=== PATIENT | female | born 1990 | race Caucasian/White ===

== ENCOUNTER 2019-09-14 16:24 | Emergency (ER) | payer MEDICAID ==
[~2019-09-14] VITALS: Ht 157.5 cm; Wt 81.0 kg
[~2019-09-14 16:24] MED LIST: NO MEDICATIONS REPORTED
[2019-09-14] MEDS ORDERED: ONDANSETRON HCL 4MG/2ML INJ IV STA (16:59)
[2019-09-14] MEDS ORDERED: SODIUM CHLORIDE 0.9% 1,000 ML IV ONE (16:59)
[2019-09-14] MEDS ORDERED: MORPHINE SULFATE 4 MG/ML CPJ (NOT FOR IM USE) IV STA (16:59)
[2019-09-14 17:37] LABS: CLARITY URINE CLOUDY (CLEAR); COLOR URINE YELLOW (YELLOW); KETONES URINE 1+ (NEGATIVE); LEUKOCYTE ESTERASE URINE 1+ (NEGATIVE); NITRITE URINE NEGATIVE (NEGATIVE); OCCULT BLOOD URINE NEGATIVE (NEGATIVE); PROTEIN URINE 1+ (NEGATIVE); SPECIFIC GRAVITY URINE 1.033 (1.005-1.030)
[2019-09-14 19:04] LABS: BASOPHILS % 0.1 % (0.0-2.0); CHLORIDE 104 mEq/L (98-107); HEMATOCRIT. 41.6 % (36.0-48.0); HEMOGLOBIN. 14.4 g/dL (12.0-16.0); LYMPHOCYTES % 12.6 % (20.0-50.0); MEAN CORPUSCULAR HEMOGLOBIN 27.8 pg (28.0-32.0); MEAN CORPUSCULAR VOLUME 80.6 fL (81.0-99.0); MEAN PLATELET VOLUME 8.6 fl (7.4-10.4); MONOCYTES % 2.1 % (2.0-8.0); NEUTROPHILS % 85.2 % (40.0-76.0); PLATELET 254 x1000/uL (130-400); RED BLOOD CELL COUNT 5.16 mill/uL (4.2-5.4); RED CELL DISTRIBUTION WIDTH 13.7 % (11.6-14.6)
[2019-09-14 20:48] VITALS: BP 122/77
== END 2019-09-14 20:49 | disposition home or self-care (01) ==
LOC: ER 16:24
DX: K29.70 Gastritis, unspecified, without bleeding (principal); R03.0 Elevated blood-pressure reading, without diagnosis of hypertension
CPT/HCPCS: 36415; 80053; 81003; 83690; 85025; 96374; 96375; 99284; J2270; J2405; J7030

== ENCOUNTER 2021-02-28 22:23 | Emergency (ER) | payer MEDICAID ==
[~2021-02-28] VITALS: Ht 157.5 cm; Wt 85.0 kg
[~2021-02-28 22:23] MED LIST changes: +AMOX-424 MT; +LORA10CA MT; +SULF1TAB48 MT
[2021-03-01 01:29] LABS: BASOPHILS % 1.2 % (0.0-2.0); EOSINOPHILS % 3.7 % (0.0-5.0); HEMATOCRIT. 39.1 % (36.0-48.0); HEMOGLOBIN. 13.2 g/dL (12.0-16.0); LYMPHOCYTES % 44.2 % (20.0-50.0); MEAN CORPUSCULAR HEMOGLOBIN 27.6 pg (28.0-32.0); MEAN CORPUSCULAR VOLUME 81.7 fL (81.0-99.0); MEAN PLATELET VOLUME 7.8 fl (7.4-10.4); NEUTROPHILS % 45.9 % (40.0-76.0); PLATELET 403 x1000/uL (130-400); RED BLOOD CELL COUNT 4.79 mill/uL (4.2-5.4); RED CELL DISTRIBUTION WIDTH 13.4 % (11.6-14.6)
[2021-03-01 01:40] LABS: CHLORIDE 108 mEq/L (98-107); CLARITY URINE CLOUDY (CLEAR); COLOR URINE RED (YELLOW); KETONES URINE NEGATIVE (NEGATIVE); LEUKOCYTE ESTERASE URINE 1+ (NEGATIVE); NITRITE URINE NEGATIVE (NEGATIVE); OCCULT BLOOD URINE 3+ (NEGATIVE); PH URINE 5.5 (4.5-8.0); PROTEIN URINE 2+ (NEGATIVE); PROTHROMBIN TIME 10.3 sec (9.6-11.0); SPECIFIC GRAVITY URINE 1.025 (1.005-1.030); UROBILINOGEN URINE 0.2 E.U./dL (0.2-1.0)
[2021-03-01 01:44] LABS: HCG SCREEN NEGATIVE
[2021-03-01] MEDS ORDERED: NITR-87 MT (02:06)
[2021-03-01 02:12] VITALS: BP 131/75
== END 2021-03-01 02:15 | disposition home or self-care (01) ==
LOC: ER 22:23
DX: N39.0 Urinary tract infection, site not specified (principal)
CPT/HCPCS: 36415; 76830; 76856; 80053; 81003; 81025; 84703; 85025; 99284

== ENCOUNTER 2021-10-22 22:32 | Emergency (ER) | payer MEDICAID ==
[~2021-10-22] VITALS: Ht 157.5 cm; Wt 91.0 kg
[~2021-10-22 22:32] MED LIST changes: +NITR-87 MT
[2021-10-22 22:47] VITALS: BP 144/67
[2021-10-23] MEDS ORDERED: POLY17PO3 MT (03:56)
== END 2021-10-23 00:52 | disposition home or self-care (01) ==
LOC: ER 22:32
DX: O22.43 Hemorrhoids in pregnancy, third trimester (principal); O26.853 Spotting complicating pregnancy, third trimester; R03.0 Elevated blood-pressure reading, without diagnosis of hypertension; Z3A.32 32 weeks gestation of pregnancy
CPT/HCPCS: 81025; 99282